=== PATIENT | male | born 1950 | race Caucasian/White ===

== ENCOUNTER 2017-07-21 10:31 | Inpatient (IN) | payer OTHER ==
[~2017-07-21] VITALS: Ht 188 cm; Wt 172.5 kg
[2017-07-21] MEDS ORDERED: ALBUTEROL/IPRATROPIUM 3 ML NEB NEB ONE ×2 (10:45→12:30)
[2017-07-21] MEDS ORDERED: DEXAMETHASONE SOD PHOS 10 MG/1 ML VIAL IV ONE (10:45)
[2017-07-21 11:12] LABS: BASOPHILS # (AUTO) 0.1 (0.0-0.1); BASOPHILS % 0.5 % (0.0-1.0); EOSINOPHILS # (AUTO) 0.2 (0.0-0.4); EOSINOPHILS % 1.5 % (0.0-6.0); HEMATOCRIT 46.1 % (38.2-49.6); HEMOGLOBIN 15.2 g/dL (14.0-18.0); LYMPHOCYTES # (AUTO) 1.4 (1.0-3.2); LYMPHOCYTES % 12.6 % (18.0-39.1); MEAN CORPUSCULAR HEMOGLOBIN 28.9 pg (28-32); MEAN CORPUSCULAR VOLUME 87.6 fL (81-99); MONOCYTES % 9.1 % (4.4-11.3); NEUTROPHILS # (AUTO) 8.3 (2.1-6.9); NEUTROPHILS % 75.8 % (38.7-80.0); PLATELET COUNT 184 x10e3/uL (140-360); RED BLOOD COUNT 5.26 x10e6/uL (4.3-5.7); RED CELL DISTRIBUTION WIDTH 14.8 % (11.7-14.4)
[2017-07-21 11:31] LABS: ALANINE AMINOTRANSFERASE 38 IU/L (0-55); ALBUMIN 3.6 g/dL (3.5-5.0); ALBUMIN/GLOBULIN RATIO 0.8 (0.8-2.0); ALKALINE PHOSPHATASE 101 IU/L (40-150); ANION GAP 12.7 mmol/L (8-16); BLOOD UREA NITROGEN 15 mg/dL (7-26); BUN/CREATININE RATIO 13 (6-25); CALCIUM 9.6 mg/dL (8.4-10.2); CARBON DIOXIDE 26 mmol/L (22-29); CHLORIDE 103 mmol/L (98-107); CREATININE, SERUM 1.15 mg/dL (0.72-1.25); EST GLOMERULAR FILTRATION RATE > 60 ML/MIN (60-); GLUCOSE 120 mg/dL (74-118); POTASSIUM 3.7 mmol/L (3.5-5.1); SODIUM 138 mmol/L (136-145)
[2017-07-21 11:59] LABS: ABG HCO3 26 mmol/L (23-28); ABG PCO2 38 mmHg (41-51); ABG PH 7.44 (7.31-7.41); ABG PO2 73 mmHg (80-105)
--- NOTE | 2017-07-21 12:16 | Diagnostic Imaging Report ---
PROCEDURE: X-RAY CHEST, TWO VIEWS COMPARISON: None. INDICATIONS: SHORTNESS OF BREATH, CONGESTION FINDINGS: Limited evaluation secondary to patient body habitus. The lungs are well-inflated. Patchy airspace opacities in the lung bases left greater than right likely reflect atelectasis. No pleural effusion or pneumothorax. Mild enlargement of the cardiac silhouette with prominence of the pulmonary interstitium. No acute osseous abnormalities. Multilevel degenerative disc changes of the thoracic spine. CONCLUSION: Mild cardiomegaly with interstitial pulmonary edema. Dictated by: Cuco Reyes M.D. on 07/21/2017 at 12:16 Electronically approved by: Cuco Reyes M.D. on 07/21/2017 at 12:16
[2017-07-21] MEDS ORDERED: LEVOFLOXACIN 750MG/D5W 150ML 150 ML IV ONE (12:30)
[2017-07-21] MEDS ORDERED: FUROSEMIDE INJ 10 MG/ML 4 ML VIAL IV ONE (12:30)
[2017-07-21] MEDS ORDERED: LEVOFLOXACIN 750MG/DEXTROSE PREMIX BAG 150ML IV SCH (12:45)
[2017-07-21] MEDS ORDERED: SODIUM CHLORIDE FLUSH 10 ML SYR INJ PRN (12:45)
[2017-07-21] MEDS ORDERED: ASPIRIN 81 MG CHEW TAB PO ONE (12:45)
[2017-07-21 13:11] LABS: CREATINE KINASE MB 8.9 ng/mL (0-5.0)
[2017-07-21] MEDS ORDERED: LEVOTHYROXINE125 MCG (13:52)
[2017-07-21] MEDS ORDERED: VENTOLIN HFA18 GM (13:52)
[2017-07-21] MEDS ORDERED: AMLODIPINE BESYL5 MG (13:52)
[2017-07-21] MEDS ORDERED: FUROSEMIDE INJ 10 MG/ML 4 ML VIAL ONE (14:24)
[2017-07-21] MEDS: ALBUTEROL/IPRATROPIUM 3 ML NEB NEB SCH ×3 (15:00→23:15)
[2017-07-21] MEDS: LEVOFLOXACIN 750MG/D5W 150ML 150 ML IV SCH (19:50)
[2017-07-21 21:37] LABS: CREATINE KINASE MB 7.7 ng/mL (0-5.0)
[2017-07-21 22:30] VITALS: BP 162/81
[2017-07-21 23:57] VITALS: BP 162/81
[2017-07-22] VITALS (7 sets, daily range): BP systolic 141–178; BP diastolic 74–89
[2017-07-22] MEDS: ALBUTEROL/IPRATROPIUM 3 ML NEB NEB SCH ×6 (03:01→23:00)
[2017-07-22 07:36] LABS: BASOPHILS % 0.1 % (0.0-1.0); HEMATOCRIT 46.9 % (38.2-49.6); HEMOGLOBIN 15.3 g/dL (14.0-18.0); LYMPHOCYTES # (AUTO) 1.4 (1.0-3.2); LYMPHOCYTES % 14.8 % (18.0-39.1); MEAN CORPUSCULAR HGB CONC 32.6 g/dL (31-35); MEAN CORPUSCULAR VOLUME 88.8 fL (81-99); MONOCYTES # (AUTO) 0.8 (0.2-0.8); MONOCYTES % 8.2 % (4.4-11.3); NEUTROPHILS # (AUTO) 7.1 (2.1-6.9); NEUTROPHILS % 76.3 % (38.7-80.0); PLATELET COUNT 193 x10e3/uL (140-360); RED BLOOD COUNT 5.28 x10e6/uL (4.3-5.7); RED CELL DISTRIBUTION WIDTH 14.6 % (11.7-14.4)
--- NOTE | 2017-07-22 07:56 | Consultation ---
DATE OF CONSULTATION: CARDIOLOGY CONSULTATION CHIEF COMPLAINT: The patient is a 66-year-old with cough and dyspnea. HISTORY OF PRESENT ILLNESS: The patient has a history of chronic bronchitis and tobacco use. 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 Since then, he has been having increased trouble breathing and a dry cough. The patient has had no chest pain, no nausea, no vomiting, no abdominal pain, no fevers. PAST MEDICAL HISTORY: Significant for: 1. Chronic bronchitis. 2. Hypertension. 3. Hypothyroidism. MEDICATIONS: The patient's home medications include albuterol inhaler, amlodipine, and Synthroid. SOCIAL HISTORY: The patient has been a smoker. The patient does not drink. FAMILY HISTORY: There is a known family history of hypertension. PHYSICAL EXAMINATION GENERAL: The patient is a well-developed, well-nourished male. VITAL SIGNS: Temperature 96.4, pulse 67, blood pressure 170/80. HEAD, EARS, EYES, NOSE AND THROAT: The patient's cranium is normocephalic and atraumatic. The extraocular muscles are intact. Sclerae are anicteric. Pupils are equal, round and reactive to light. There is no pallor or cyanosis of the oral mucosa. No erythema or edema of the throat. NECK: Supple. No jugular venous distention. No carotid bruit. CHEST: The patient had rhonchi bilaterally. CARDIAC: The patient had normal S1 and S2, with a short 2/6 systolic murmur. ABDOMEN: The patient had good bowel sounds. No tenderness. No masses. EXTREMITIES: No clubbing, no cyanosis, no edema. NEUROLOGIC: The patient is alert and oriented times 3. Cranial nerves II through XII are intact. Motor strength was +5/+5 in all limbs. The patient's EKG demonstrated normal sinus rhythm with some nonspecific ST and T wave changes. 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 The patient will need to be treated with albuterol aerosols and IV antibiotics and some steroids. An echocardiogram has been ordered to evaluate the left ventricular size and function. Job#: [id number] cc:DIANA CROWE MD
[2017-07-22 08:04] LABS: BLOOD UREA NITROGEN 25 mg/dL (7-26); BUN/CREATININE RATIO 22 (6-25); CALCIUM 9.3 mg/dL (8.4-10.2); CARBON DIOXIDE 27 mmol/L (22-29); CHLORIDE 103 mmol/L (98-107); CREATININE, SERUM 1.12 mg/dL (0.72-1.25); EST GLOMERULAR FILTRATION RATE > 60 ML/MIN (60-); GLUCOSE 146 mg/dL (74-118); SODIUM 142 mmol/L (136-145)
[2017-07-22] MEDS: AMLODIPINE BESYLATE 5 MG TAB PO SCH (08:41)
[2017-07-22] MEDS: NICOTINE 14 MG/EA PATCH TOP SCH (08:41)
--- NOTE | 2017-07-22 09:45 | History and Physical ---
PCP: Dr. Ricardo House OCEAN EXPORT AGENT: Dr. Segundo Pavon CHIEF COMPLAINT: Shortness of breath with acute exacerbation of COPD and bronchitis. HISTORY: A 66-year-old male has been ill for the past week with increasing shortness of breath and wheezing. The patient is a heavy smoker. He came in with acute bronchitis and difficulty breathing. The patient was receiving nebulizer treatment. He did a little bit better. The patient is otherwise stable at this time. PAST MEDICAL HISTORY: COPD, hypertension, hypothyroidism. PAST SURGICAL HISTORY: Noncontributory. SOCIAL HISTORY: The patient is a smoker. He does not drink alcohol. ALLERGIES: NO KNOWN ALLERGIES. HOME MEDICATIONS: List reviewed. REVIEW OF SYSTEMS: As mentioned. PHYSICAL EXAMINATION VITAL SIGNS: Temperature is 98, blood pressure 178/86, pulse rate 76, respirations 18. GENERAL: The patient is not in acute distress. He is awake. HEENT: Normocephalic, atraumatic and anicteric. NECK: Supple grossly. PULMONARY: Diminished breath sounds bilaterally with coarses and rhonchi. CARDIOVASCULAR: S1 and S2. Regular rate and rhythm. ABDOMEN: Morbidly obese. EXTREMITIES: No cyanosis or edema. NEUROLOGICAL: No focal deficit. LABORATORY: Otherwise unremarkable. IMPRESSION 1. Acute exacerbation of chronic obstructive pulmonary disease. 2. Acute bronchitis. 3. Rrkbx-[id number] diastolic dysfunction congestive heart failure. PLAN: IV Lasix. Nebulizer treatment and antibiotics. Continue with current management. Job#: [id number] MA
[2017-07-22] MEDS: LEVOTHYROXINE SODIUM 112 MCG TAB PO SCH (11:11)
[2017-07-22] MEDS: POTASSIUM CHLORIDE 20 MEQ TAB CR PO SCH (11:11)
[2017-07-22] MEDS: FUROSEMIDE INJ 10 MG/ML 4 ML VIAL IV SCH (11:11)
--- NOTE | 2017-07-22 12:28 | Diagnostic Imaging Report ---
PROCEDURE: CT CHEST WITHOUT CONTRAST CT scan of the chest WITHOUT intravenous contrast, using standard protocol. TECHNIQUE: The chest was scanned utilizing a multidetector helical scanner from the apex to the level of the adrenal glands. No IV contrast was administered per physician's request. Coronal and sagittal multiplanar reformations were obtained. COMPARISON: None. INDICATIONS: SHORTNESS OF BREATH FINDINGS: Lines/tubes: None. Lungs and Airways: Centrilobular emphysematous changes predominantly involving the right upper lung (for example series 3, image 28). Increased subpleural reticulation noted, predominantly in the upper lobes, bilaterally (series 3, image 35 and bilateral lower lobes (example series 3, image 70), consistent with fibrotic changes. Linear opacities in the medial aspect of the lower lobes bilaterally, with mild traction bronchiectasis. Bilateral lower lobe central bronchial wall thickening. Subpleural paraseptal cystic changes in the upper lobes (series 3, image 34 and lower lobes (series 3, image 61). No definite honeycombing Ill-defined ground glass opacities in bilateral upper lobes (for example series 3, image 38 and bilateral lower lobes (series 3, image 92), associated to the above-described linear opacities and traction bronchiectasis. No nodules, masses, or consolidation. Airways are clear, without endobronchial lesions. Pleura: No effusion, or pneumothorax. Heart and mediastinum: Thyroid is unremarkable. Heart size is borderline enlarged. Atherosclerotic calcification of the coronary arteries and thoracic aorta. Aorta is non-aneurysmal. The main pulmonary artery measures approximately 3.2 cm. Soft lymph nodes: Enlarged right lower paratracheal lymph node, which measures approximately 1.5 cm in short axis (series 2, image 45). Mildly enlarged and partly calcified para-aortic lymph node (series 2, image 41), which measures 1.1 cm in short axis. Enlarged subcarinal lymph node measuring 1.7 cm in short axis (series 2, image 61). No axillary adenopathy. Abdomen: Limited views of the upper abdomen show no abnormality within the visualized liver, spleen, pancreas, or left kidney. Cholelithiasis, without wall thickening, or pericholecystic fluid. The adrenal glands are unremarkable. Bones: No aggressive lytic lesions. Multilevel degenerative disc changes in the thoracic spine. IMPRESSION: 1. Findings in bilateral lungs, consistent with fibrotic changes/interstitial lung disease (NSIP is a likely consideration). No consolidation, effusion or pulmonary masses. 2. Centrilobular emphysematous changes predominantly in the right upper lung. 3. Mediastinal adenopathy, as described, likely reactive. 4. Cholelithiasis, without CT evidence of cholecystitis. Meño Silva M.D. Dictated by: Meño Silva M.D. on 07/22/2017 at 12:29 Electronically approved by: Meño Silva M.D. on 07/22/2017 at 12:29
[2017-07-22] MEDS ORDERED: SODIUM CHLORIDE 0.9% 250ML 250 ML ONE (14:04)
[2017-07-22] MEDS: LEVOFLOXACIN 750MG/D5W 150ML 150 ML IV SCH (14:11)
[2017-07-22] MEDS: BENZONATATE 100 MG CAP PO PRN (22:30)
[2017-07-23] VITALS (8 sets, daily range): BP systolic 125–174; BP diastolic 77–95
[2017-07-23] MEDS: BENZONATATE 100 MG CAP PO PRN (05:50)
[2017-07-23] MEDS: LEVOTHYROXINE SODIUM 112 MCG TAB PO SCH (06:04)
[2017-07-23] MEDS: ALBUTEROL/IPRATROPIUM 3 ML NEB NEB SCH ×5 (07:00→23:30)
[2017-07-23 07:31] LABS: ANION GAP 14.7 mmol/L (8-16); BLOOD UREA NITROGEN 30 mg/dL (7-26); BUN/CREATININE RATIO 26 (6-25); CALCIUM 9.4 mg/dL (8.4-10.2); CARBON DIOXIDE 25 mmol/L (22-29); CHLORIDE 104 mmol/L (98-107); CREATININE, SERUM 1.14 mg/dL (0.72-1.25); EST GLOMERULAR FILTRATION RATE > 60 ML/MIN (60-); GLUCOSE 110 mg/dL (74-118); POTASSIUM 3.7 mmol/L (3.5-5.1); SODIUM 140 mmol/L (136-145)
[2017-07-23] MEDS: NICOTINE 14 MG/EA PATCH TOP SCH (09:00)
[2017-07-23] MEDS: FUROSEMIDE INJ 10 MG/ML 4 ML VIAL IV SCH (09:28)
[2017-07-23] MEDS: POTASSIUM CHLORIDE 20 MEQ TAB CR PO SCH (09:28)
[2017-07-23] MEDS: AMLODIPINE BESYLATE 5 MG TAB PO SCH (09:28)
[2017-07-23] MEDS: LEVOFLOXACIN 750MG/D5W 150ML 150 ML IV SCH (13:58)
[2017-07-24] VITALS (7 sets, daily range): BP systolic 132–164; BP diastolic 68–95
[2017-07-24] MEDS: ALBUTEROL/IPRATROPIUM 3 ML NEB NEB SCH ×5 (03:20→17:40)
[2017-07-24] MEDS: LEVOTHYROXINE SODIUM 112 MCG TAB PO SCH (05:35)
[2017-07-24] MEDS: FUROSEMIDE INJ 10 MG/ML 4 ML VIAL IV SCH (08:05)
[2017-07-24] MEDS: POTASSIUM CHLORIDE 20 MEQ TAB CR PO SCH (08:05)
[2017-07-24] MEDS: AMLODIPINE BESYLATE 5 MG TAB PO SCH (08:06)
[2017-07-24] MEDS: NICOTINE 14 MG/EA PATCH TOP SCH (08:06)
[2017-07-24] MEDS: DOXYCYCLINE HYCLATE TABLET 100 MG TAB PO SCH ×2 (09:42→20:46)
[2017-07-24] MEDS: GUAIFENESIN 600 MG TAB PO SCH ×2 (09:42→16:49)
[2017-07-24] MEDS: METHYLPREDNISOLONE SOD SUCC 40 MG/ML VIAL IV SCH ×2 (09:42→16:49)
[2017-07-24] MEDS: LEVOFLOXACIN 750MG/D5W 150ML 150 ML IV SCH (13:32)
[2017-07-25] VITALS (7 sets, daily range): BP systolic 160–177; BP diastolic 81–98
[2017-07-25] MEDS: METHYLPREDNISOLONE SOD SUCC 40 MG/ML VIAL IV SCH ×3 (01:12→17:25)
[2017-07-25] MEDS: LEVOTHYROXINE SODIUM 112 MCG TAB PO SCH (05:41)
[2017-07-25] MEDS: ALBUTEROL/IPRATROPIUM 3 ML NEB NEB SCH ×5 (07:55→23:00)
[2017-07-25] MEDS: FUROSEMIDE INJ 10 MG/ML 4 ML VIAL IV SCH (09:36)
[2017-07-25] MEDS: NICOTINE 14 MG/EA PATCH TOP SCH (09:37)
[2017-07-25] MEDS: POTASSIUM CHLORIDE 20 MEQ TAB CR PO SCH (09:37)
[2017-07-25] MEDS: AMLODIPINE BESYLATE 5 MG TAB PO SCH (09:37)
[2017-07-25] MEDS: GUAIFENESIN 600 MG TAB PO SCH ×2 (09:37→17:25)
[2017-07-25] MEDS: DOXYCYCLINE HYCLATE TABLET 100 MG TAB PO SCH ×2 (09:37→21:00)
[2017-07-25] MEDS: LEVOFLOXACIN 750MG/D5W 150ML 150 ML IV SCH (13:54)
[2017-07-25] MEDS ORDERED: OLOPATADINE 5 ML BTL OP PRN (22:30)
[2017-07-25] MEDS ORDERED: HYDRALAZINE HCL 25 MG TAB PO PRN (23:00)
[2017-07-26] VITALS: BP 142/67
[2017-07-26] MEDS: AMLODIPINE BESYLATE 5 MG TAB PO SCH ×2 (00:35→09:22)
[2017-07-26] MEDS: METHYLPREDNISOLONE SOD SUCC 40 MG/ML VIAL IV SCH ×3 (00:36→16:56)
[2017-07-26] MEDS: ALBUTEROL/IPRATROPIUM 3 ML NEB NEB SCH ×6 (03:00→22:55)
[2017-07-26 04:00] VITALS: BP 165/89
[2017-07-26] MEDS: LEVOTHYROXINE SODIUM 112 MCG TAB PO SCH (07:30)
[2017-07-26 08:49] VITALS: BP 140/82
[2017-07-26] MEDS: LORATADINE 10 MG TAB PO SCH ×2 (09:22)
[2017-07-26] MEDS: GUAIFENESIN 600 MG TAB PO SCH ×2 (09:22→16:56)
[2017-07-26] MEDS: NICOTINE 14 MG/EA PATCH TOP SCH (09:22)
[2017-07-26] MEDS: POTASSIUM CHLORIDE 20 MEQ TAB CR PO SCH (09:22)
[2017-07-26] MEDS: FUROSEMIDE INJ 10 MG/ML 4 ML VIAL IV SCH (09:22)
[2017-07-26 11:43] VITALS: BP 156/86
[2017-07-26] MEDS: LEVOFLOXACIN 750MG/D5W 150ML 150 ML IV SCH (14:30)
[2017-07-26 16:57] VITALS: BP 154/91
[2017-07-26 20:00] VITALS: BP 159/67
[2017-07-27] VITALS: BP 157/70
[2017-07-27] MEDS: METHYLPREDNISOLONE SOD SUCC 40 MG/ML VIAL IV SCH ×3 (01:00→17:00)
[2017-07-27] MEDS: ALBUTEROL/IPRATROPIUM 3 ML NEB NEB SCH ×7 (02:48→23:08)
[2017-07-27 04:00] VITALS: BP 147/69
[2017-07-27] MEDS: LEVOTHYROXINE SODIUM 112 MCG TAB PO SCH (05:58)
[2017-07-27 07:51] VITALS: BP 157/81
[2017-07-27 08:25] LABS: BASOPHILS # (AUTO) 0.1 (0.0-0.1); BASOPHILS % 0.5 % (0.0-1.0); HEMOGLOBIN 16.8 g/dL (14.0-18.0); LYMPHOCYTES # (AUTO) 1.7 (1.0-3.2); LYMPHOCYTES % 12.3 % (18.0-39.1); MEAN CORPUSCULAR HGB CONC 32.9 g/dL (31-35); MEAN CORPUSCULAR VOLUME 87.9 fL (81-99); MONOCYTES # (AUTO) 0.7 (0.2-0.8); MONOCYTES % 5.3 % (4.4-11.3); NEUTROPHILS # (AUTO) 10.6 (2.1-6.9); NEUTROPHILS % 79.3 % (38.7-80.0); PLATELET COUNT 268 x10e3/uL (140-360); RED CELL DISTRIBUTION WIDTH 14.4 % (11.7-14.4)
[2017-07-27 08:54] LABS: ANION GAP 12.2 mmol/L (8-16); BLOOD UREA NITROGEN 30 mg/dL (7-26); BUN/CREATININE RATIO 27 (6-25); CALCIUM 9.6 mg/dL (8.4-10.2); CARBON DIOXIDE 27 mmol/L (22-29); CHLORIDE 101 mmol/L (98-107); CREATININE, SERUM 1.11 mg/dL (0.72-1.25); EST GLOMERULAR FILTRATION RATE > 60 ML/MIN (60-); GLUCOSE 164 mg/dL (74-118); POTASSIUM 4.2 mmol/L (3.5-5.1); SODIUM 136 mmol/L (136-145)
[2017-07-27] MEDS: LORATADINE 10 MG TAB PO SCH (09:38)
[2017-07-27] MEDS: AMLODIPINE BESYLATE 5 MG TAB PO SCH (09:39)
[2017-07-27] MEDS: NICOTINE 14 MG/EA PATCH TOP SCH (09:39)
[2017-07-27] MEDS: GUAIFENESIN 600 MG TAB PO SCH ×2 (09:39→17:00)
[2017-07-27] MEDS: POTASSIUM CHLORIDE 20 MEQ TAB CR PO SCH (09:39)
[2017-07-27] MEDS: FUROSEMIDE 40 MG TAB PO SCH (09:39)
[2017-07-27 13:00] VITALS: BP 164/90
[2017-07-27 14:40] LABS: LYMPHOCYTES % (MANUAL) 12 % (19-48); MONOCYTES % (MANUAL) 3 % (3.4-9.0); NEUTROPHILS % (MANUAL) 85 % (40-74); PLATELET ESTIMATE ADEQUATE; PLATELET MORPHOLOGY COMMENT NORMAL; RBC MORPHOLOGY COMMENT NORMAL
[2017-07-27] MEDS: LEVOFLOXACIN 750MG/D5W 150ML 150 ML IV SCH (14:57)
[2017-07-27 15:50] VITALS: BP 131/65
[2017-07-27 20:00] VITALS: BP 145/67
[2017-07-28] VITALS: BP 166/97
[2017-07-28] MEDS: METHYLPREDNISOLONE SOD SUCC 40 MG/ML VIAL IV SCH ×2 (00:21→09:00)
[2017-07-28] MEDS: ALBUTEROL/IPRATROPIUM 3 ML NEB NEB SCH ×2 (03:04→07:00)
[2017-07-28 04:00] VITALS: BP 159/97
[2017-07-28] MEDS: LEVOTHYROXINE SODIUM 112 MCG TAB PO SCH (05:54)
[2017-07-28 07:40] VITALS: BP 137/68
[2017-07-28] MEDS: NICOTINE 14 MG/EA PATCH TOP SCH (09:00)
[2017-07-28] MEDS: LORATADINE 10 MG TAB PO SCH (09:00)
[2017-07-28] MEDS: POTASSIUM CHLORIDE 20 MEQ TAB CR PO SCH (09:00)
[2017-07-28] MEDS: AMLODIPINE BESYLATE 5 MG TAB PO SCH (09:00)
[2017-07-28] MEDS: GUAIFENESIN 600 MG TAB PO SCH (09:00)
[2017-07-28] MEDS: FUROSEMIDE 40 MG TAB PO SCH (09:00)
--- NOTE | 2017-07-28 09:15 | Discharge Summary ---
PCP: Dr. Ricardo House FINAL DIAGNOSES 1. Acute exacerbation of chronic obstructive pulmonary disease. 2. Fibrotic changes and interstitial lung disease. 3. Baseline smoker. 4. Rsxst-tv-[id number] diastolic dysfunction congestive heart failure, much improved. SUMMARY: This is a 66-year-old male who came in with increasing shortness of breath. The patient had workup. He has a CT scan of the chest and multiple other vascular workup. The patient basically has some left lower extremity peripheral vascular disease, but he is a smoker. There is no acute ischemia. The patient was stable. The CT scan as mentioned above. He did have some fluid retention, but much improved with furosemide. The patient had been on antibiotics. He is doing better. The patient will go home today. Discharge medication list is given. Patient will resume his home medication. 1. He finished the Medrol Dosepak. 2. Patanol eyedrops for itching. 3. Claritin 10 mg daily. 4. DuoNeb q.6 h. p.r.n. 5. Tessalon Perle. 6. Lasix. 7. Potassium was given as well. Patient is stable. Resume his home medications of Symbicort and albuterol. The patient will follow up with Dr. Ricardo House. The patient may need pulmonary function test at a later date. Discussed with the patient at length regarding stopping smoking. He expressed understanding. 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 The patient is stable at this time. Discharged home today. Job#: [id number] [place]
== END 2017-07-28 09:30 | disposition home or self-care (01) | DRG 190 ==
LOC: ER 10:31 → ERHOLD 13:24 → MED/SURG3 21:14
PROVIDERS: ADMIT Internal Medicine; ATTEND Internal Medicine
DX: J44.1 Chronic obstructive pulmonary disease with (acute) exacerbation (principal); I50.33 Acute on chronic diastolic (congestive) heart failure; J44.0 Chronic obstructive pulmonary disease with (acute) lower respiratory infection; J20.9 Acute bronchitis, unspecified; E03.9 Hypothyroidism, unspecified; I11.0 Hypertensive heart disease with heart failure; F17.210 Nicotine dependence, cigarettes, uncomplicated; R09.02 Hypoxemia; I70.202 Unspecified atherosclerosis of native arteries of extremities, left leg; J84.10 Pulmonary fibrosis, unspecified
CPT/HCPCS: 36415; 36600; 71046; 71250; 80048; 80053; 82550; 82553; 82805; 83880; 84484; 85025; 87040; 93005; 93306; 93880; 93925; 94640; 97139; 99284; J1100; J1940; J2920; J7050

== ENCOUNTER 2017-08-23 01:16 | Inpatient (IN) | payer OTHER ==
[~2017-08-23] VITALS: Ht 188 cm; Wt 147.0 kg
[~2017-08-23 01:16] MED LIST: AMLODIPINE BESYL5 MG; LEVOTHYROXINE125 MCG; VENTOLIN HFA18 GM
[2017-08-23] MEDS ORDERED: ALBUTEROL SULF 0.083% NEB SOLN 3 ML NEB NEB STA (01:17)
[2017-08-23] MEDS ORDERED: METHYLPREDNISOLONE SOD SUCC 125 MG/2ML VIAL IV ONE (01:30)
[2017-08-23] MEDS ORDERED: IPRATROPIUM BROMIDE 0.02% 2.5 ML NEB NEB ONE (01:30)
[2017-08-23 01:45] LABS: BASOPHILS # (AUTO) 0.1 (0.0-0.1); BASOPHILS % 0.9 % (0.0-1.0); EOSINOPHILS # (AUTO) 0.4 (0.0-0.4); EOSINOPHILS % 6.3 % (0.0-6.0); HEMATOCRIT 45.2 % (38.2-49.6); LYMPHOCYTES # (AUTO) 1.8 (1.0-3.2); LYMPHOCYTES % 25.6 % (18.0-39.1); MEAN CORPUSCULAR HEMOGLOBIN 28.9 pg (28-32); MEAN CORPUSCULAR HGB CONC 33.2 g/dL (31-35); MEAN CORPUSCULAR VOLUME 87.1 fL (81-99); MONOCYTES # (AUTO) 0.5 (0.2-0.8); MONOCYTES % 7.7 % (4.4-11.3); NEUTROPHILS # (AUTO) 4.2 (2.1-6.9); NEUTROPHILS % 59.2 % (38.7-80.0); PLATELET COUNT 208 x10e3/uL (140-360); RED BLOOD COUNT 5.19 x10e6/uL (4.3-5.7); RED CELL DISTRIBUTION WIDTH 15.4 % (11.7-14.4)
[2017-08-23 01:47] LABS: ALANINE AMINOTRANSFERASE 27 IU/L (0-55); ALBUMIN 3.9 g/dL (3.5-5.0); ALBUMIN/GLOBULIN RATIO 1.1 (0.8-2.0); ALKALINE PHOSPHATASE 89 IU/L (40-150); ANION GAP 15.2 mmol/L (8-16); BLOOD UREA NITROGEN 15 mg/dL (7-26); BUN/CREATININE RATIO 13 (6-25); CALCIUM 9.4 mg/dL (8.4-10.2); CARBON DIOXIDE 24 mmol/L (22-29); CHLORIDE 107 mmol/L (98-107); CREATINE KINASE 608 IU/L (30-200); CREATININE, SERUM 1.15 mg/dL (0.72-1.25); EST GLOMERULAR FILTRATION RATE > 60 ML/MIN (60-); GLUCOSE 105 mg/dL (74-118); POTASSIUM 4.2 mmol/L (3.5-5.1); SODIUM 142 mmol/L (136-145)
--- NOTE | 2017-08-23 01:49 | Diagnostic Imaging Report ---
EXAMINATION: CHEST SINGLE (PORTABLE) INDICATION: Shortness of breath COMPARISON: None FINDINGS: TUBES and LINES: None. LUNGS: Lungs are not well inflated. There are bibasilar atelectasis. There is mild prominence of the central pulmonary vasculature, consistent with pulmonary venous congestion. PLEURA: No pleural effusion or pneumothorax. HEART AND MEDIASTINUM: The cardiomediastinal silhouette is unremarkable. BONES AND SOFT TISSUES: No acute osseous lesion. Soft tissues are unremarkable. UPPER ABDOMEN: No free air under the diaphragm. IMPRESSION: No acute thoracic abnormality. Signed by: Dr. Rishabh Perry M.D. on 08/23/2017 1:46 AM
[2017-08-23] MEDS ORDERED: SODIUM CHLORIDE FLUSH 10 ML SYR INJ PRN (02:45)
[2017-08-23] MEDS: ALBUTEROL/IPRATROPIUM 3 ML NEB NEB SCH ×5 (03:00→23:00)
[2017-08-23] MEDS: METHYLPREDNISOLONE SOD SUCC 40 MG/ML VIAL IV SCH ×3 (04:37→18:24)
[2017-08-23] MEDS: CEFTRIAXONE SOD 1 GM VIAL IV SCH (05:30)
[2017-08-23] MEDS: AZITHROMYCIN 250 MG TAB PO SCH (05:42)
[2017-08-23 13:10] LABS: CREATINE KINASE 483 IU/L (30-200)
[2017-08-23 14:54] VITALS: BP 156/85
[2017-08-23 15:05] VITALS: BP 156/85
[2017-08-23 15:29] VITALS: BP 156/85
[2017-08-23] MEDS: NICOTINE 14 MG/EA PATCH TOP SCH (18:24)
[2017-08-23] MEDS: NEOMYCIN/POLYMYX/BACITR OINT 0.9 GM PKT TOP SCH (18:33)
[2017-08-23 18:56] VITALS: BP 164/100
[2017-08-23 21:00] VITALS: BP 151/89
[2017-08-23 21:05] VITALS: BP 151/89
[2017-08-23] MEDS: GUAIFENESIN 200 MG/10 ML UDC PO PRN (21:55)
[2017-08-24] VITALS (8 sets, daily range): BP systolic 136–156; BP diastolic 68–96
[2017-08-24] MEDS: METHYLPREDNISOLONE SOD SUCC 40 MG/ML VIAL IV SCH ×4 (00:08→22:00)
[2017-08-24] MEDS: CEFTRIAXONE SOD 1 GM VIAL IV SCH (05:41)
[2017-08-24] MEDS: AZITHROMYCIN 250 MG TAB PO SCH (05:42)
[2017-08-24] MEDS: ALBUTEROL/IPRATROPIUM 3 ML NEB NEB SCH ×5 (07:00→22:45)
[2017-08-24 07:12] LABS: BASOPHILS % 0.1 % (0.0-1.0); HEMATOCRIT 48.4 % (38.2-49.6); HEMOGLOBIN 15.4 g/dL (14.0-18.0); LYMPHOCYTES % 6.4 % (18.0-39.1); MEAN CORPUSCULAR HEMOGLOBIN 28.7 pg (28-32); MEAN CORPUSCULAR HGB CONC 31.8 g/dL (31-35); MEAN CORPUSCULAR VOLUME 90.3 fL (81-99); MONOCYTES # (AUTO) 0.5 (0.2-0.8); PLATELET COUNT 190 x10e3/uL (140-360); RED BLOOD COUNT 5.36 x10e6/uL (4.3-5.7); RED CELL DISTRIBUTION WIDTH 15.3 % (11.7-14.4)
[2017-08-24 07:36] LABS: ANION GAP 18.3 mmol/L (8-16); BLOOD UREA NITROGEN 20 mg/dL (7-26); BUN/CREATININE RATIO 20 (6-25); CALCIUM 9.8 mg/dL (8.4-10.2); CARBON DIOXIDE 22 mmol/L (22-29); CHLORIDE 105 mmol/L (98-107); CREATINE KINASE 447 IU/L (30-200); CREATININE, SERUM 1.02 mg/dL (0.72-1.25); EST GLOMERULAR FILTRATION RATE > 60 ML/MIN (60-); GLUCOSE 236 mg/dL (74-118); POTASSIUM 4.3 mmol/L (3.5-5.1); SODIUM 141 mmol/L (136-145)
[2017-08-24] MEDS ORDERED: NEOMYCIN/POLYMYX/BACITR OINT 0.9 GM PKT TOP SCH (09:00)
[2017-08-24] MEDS: NEOMYCIN/POLYMYX/BACITR OINT 0.9 GM PKT TOP SCH (09:05)
[2017-08-24] MEDS ORDERED: DEXTROSE 50% SYRINGE 50 ML IV PRN (10:30)
[2017-08-24] MEDS: INSULIN LISPRO 100 UNIT/1 ML 3ML VIAL SQ SCH ×3 (11:29→20:44)
[2017-08-24] MEDS: GUAIFENESIN 600 MG TAB PO SCH ×2 (11:33→17:11)
--- NOTE | 2017-08-24 13:20 | History and Physical ---
CHIEF COMPLAINT: Wheezing, shortness of breath and hypoxic. HISTORY OF PRESENT ILLNESS: Patient is a 66-year-old male with emphysema. Came in with acute exacerbation of COPD. The patient having wheezing and cough. Patient was hypoxic. He also has a nonproductive cough as well. The patient is otherwise stable at this time. PAST MEDICAL HISTORY: Emphysema. Obesity. Obstructive sleep apnea. Hypothyroidism. Hypertension. HOME MEDICATIONS: List is reviewed. ALLERGIES: NO KNOWN ALLERGIES. PAST SURGICAL HISTORY: Noncontributory. SOCIAL HISTORY: Patient is a smoker. He does not use alcohol. No recreational drugs. REVIEW OF SYSTEMS: As mentioned. PHYSICAL EXAMINATION: GENERAL: The patient is not in acute distress, although he is short of breath and wheezing. VITAL SIGNS: Temperature is 98. Blood pressure 145/80. Pulse rate 64. Respirations 18. HEENT: Normocephalic, atraumatic, anicteric. NECK: Supple grossly. PULMONARY: Bilateral coarseness and rhonchi, and diminished breath sounds. CARDIOVASCULAR: Regular rate and rhythm. ABDOMEN: Soft and obese. EXTREMITIES: No gross cyanosis or edema. NEUROLOGIC: No gross focal deficits. LABORATORY: Sodium is 141, potassium 4.3, chloride 105. Bicarb 22, BUN 20. Creatinine 1.0. Glucose 236. WBC 16. Hemoglobin 15. Hematocrit 48. Platelets 190,000. IMPRESSION: 1. Steroid-induced leukocytosis. On admission his WBC was 7.0. 2. Acute exacerbation of chronic obstructive pulmonary disease with hypoxia, acute bronchitis, severe emphysema due to smoking. 3. Smoker. 4. Obesity with obstructive sleep apnea, not recently had any sleep study on CPAP at home. PLAN: Consult Dr. 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 Steroids, nebulizer treatment, antibiotics. Education. Smoking cessation. Job#: [id number]
[2017-08-24 13:45] LABS: CREATINE KINASE MB 19.8 ng/mL (0-5.0)
[2017-08-24] MEDS: NICOTINE 14 MG/EA PATCH TOP SCH (17:11)
--- NOTE | 2017-08-24 17:46 | Consultation ---
DATE OF CONSULTATION: PULMONARY/CRITICAL CARE CONSULTATION REFERRING PHYSICIAN: Dr. Tong Smith. CHIEF COMPLAINT: Worsening dyspnea and cough. HISTORY OF PRESENT ILLNESS: The patient is a 66-year-old man. He has a long history of COPD. He uses Symbicort at home twice a day along with a rescue inhaler. He also had a CT scan about a year ago that showed some interstitial changes at the bases suggestive of mild nonspecific interstitial pneumonitis. He had a sleep study many years ago that was positive but never received CPAP. He was hospitalized at [facility] in June with difficulty breathing. He was given Solu-Medrol and antibiotics with improvement. Cardiology also saw the patient in consultation and felt he might have some component of diastolic heart failure. He now complains of worsening dyspnea and congestion. He has a persistent cough productive of small amounts of phlegm. He does not complain of chest pain or fevers. PAST MEDICAL HISTORY 1. History of COPD as noted above. 2. Prior history of nonspecific interstitial pneumonitis at the lung bases seen on CT scan in June 2017. 3. Possible diastolic heart failure. 4. Hypertension. 5. Hypothyroidism. PAST SURGICAL HISTORY: Noncontributory. 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 He is a prior smoker, but he quit about 4 days ago. He does not drink alcohol. ALLERGIES: THERE ARE NO KNOWN DRUG ALLERGIES. REVIEW OF SYSTEMS: The patient is afebrile. He does not report any fever. There is no headache. He has no neck pain. He is not having any sore throat. He does note some dyspnea and cough. He is not having any chest pain. He denies any nausea or vomiting. He is not complaining of any leg edema. He denies any focal neurological complaints. PHYSICAL EXAMINATION VITAL SIGNS: The patient is afebrile. Vital signs are stable. He is on 4 liters of oxygen. HEENT: Examination shows no facial swelling or erythema. Nasal mucosa is normal. The oropharynx is normal. LYMPHATIC: No submandibular, cervical or supraclavicular adenopathy. CARDIAC: Regular rate and rhythm with normal S1 and S2. There are no murmurs or rubs. CHEST: Auscultation of lungs reveals rhonchorous breath sounds bilaterally. There is no wheezing. ABDOMEN: Soft and nontender. There is no rebound or guarding. EXTREMITIES: No leg edema or calf tenderness. There is no cyanosis or clubbing. SKIN: No rashes. LABORATORY DATA: The white blood cell count is 15.5, and the other blood counts are normal. The BNP is normal. Cardiac enzymes are normal. IMPRESSION 1. [id number] respiratory failure. 2. Chronic obstructive pulmonary disease. 3. Nonspecific interstitial pneumonitis. 4. Sleep apnea. PLAN 1. Solu-Medrol IV at 1 mg/kg twice daily. 2. Aggressive bronchodilator therapy. 3. Continue current antibiotics. 4. Emphasize smoking cessation. 5. Patient will need a home oxygen evaluation prior to discharge. 6. Pulmonary function testing as an outpatient. 7. Arrange for sleep study as an outpatient. Job#: [id number]
[2017-08-24] MEDS ORDERED: BUDESONIDE/FORMOTEROL 160/4.5MCG INHALER INH SCH (19:00)
--- NOTE | 2017-08-24 19:11 | Discharge Summary ---
DICTATION DISCONTINUED (00:07) Job#: [id number] CQ
[2017-08-25] VITALS (8 sets, daily range): BP systolic 125–162; BP diastolic 77–91
[2017-08-25] MEDS: ALBUTEROL/IPRATROPIUM 3 ML NEB NEB SCH ×6 (01:45→23:20)
[2017-08-25] MEDS: METHYLPREDNISOLONE SOD SUCC 40 MG/ML VIAL IV SCH ×3 (05:59→22:11)
[2017-08-25] MEDS: AZITHROMYCIN 250 MG TAB PO SCH (05:59)
[2017-08-25] MEDS: CEFTRIAXONE SOD 1 GM VIAL IV SCH (05:59)
[2017-08-25] MEDS: BUDESONIDE/FORMOTEROL 160/4.5MCG INHALER INH SCH ×2 (07:00→19:50)
[2017-08-25] MEDS: INSULIN LISPRO 100 UNIT/1 ML 3ML VIAL SQ SCH ×4 (07:30→20:56)
[2017-08-25] MEDS: GUAIFENESIN 600 MG TAB PO SCH ×2 (09:05→17:31)
[2017-08-25] MEDS: NEOMYCIN/POLYMYX/BACITR OINT 0.9 GM PKT TOP SCH (09:05)
[2017-08-25] MEDS: NICOTINE 14 MG/EA PATCH TOP SCH (17:43)
[2017-08-25] MEDS: ACETAMINOPHEN 325 MG TAB PO PRN (17:44)
[2017-08-26] VITALS (9 sets, daily range): BP systolic 128–185; BP diastolic 69–110
[2017-08-26] MEDS: ALBUTEROL/IPRATROPIUM 3 ML NEB NEB SCH ×6 (03:01→23:40)
[2017-08-26] MEDS: CEFTRIAXONE SOD 1 GM VIAL IV SCH (04:09)
[2017-08-26] MEDS: GUAIFENESIN 200 MG/10 ML UDC PO PRN (04:09)
[2017-08-26] MEDS: AZITHROMYCIN 250 MG TAB PO SCH (05:11)
[2017-08-26] MEDS: METHYLPREDNISOLONE SOD SUCC 40 MG/ML VIAL IV SCH ×3 (05:11→21:36)
[2017-08-26] MEDS: BUDESONIDE/FORMOTEROL 160/4.5MCG INHALER INH SCH ×2 (05:41→20:21)
[2017-08-26 06:15] LABS: BASOPHILS % 0.2 % (0.0-1.0); HEMATOCRIT 46.7 % (38.2-49.6); LYMPHOCYTES # (AUTO) 1.2 (1.0-3.2); LYMPHOCYTES % 9.4 % (18.0-39.1); MEAN CORPUSCULAR HEMOGLOBIN 28.7 pg (28-32); MEAN CORPUSCULAR HGB CONC 32.1 g/dL (31-35); MEAN CORPUSCULAR VOLUME 89.3 fL (81-99); MONOCYTES # (AUTO) 0.4 (0.2-0.8); MONOCYTES % 3.2 % (4.4-11.3); NEUTROPHILS # (AUTO) 10.7 (2.1-6.9); NEUTROPHILS % 86.4 % (38.7-80.0); PLATELET COUNT 201 x10e3/uL (140-360); RED BLOOD COUNT 5.23 x10e6/uL (4.3-5.7); RED CELL DISTRIBUTION WIDTH 15.1 % (11.7-14.4)
[2017-08-26 06:36] LABS: ANION GAP 13.1 mmol/L (8-16); BLOOD UREA NITROGEN 25 mg/dL (7-26); BUN/CREATININE RATIO 25 (6-25); CALCIUM 9.8 mg/dL (8.4-10.2); CARBON DIOXIDE 28 mmol/L (22-29); CHLORIDE 102 mmol/L (98-107); CREATININE, SERUM 1.02 mg/dL (0.72-1.25); EST GLOMERULAR FILTRATION RATE > 60 ML/MIN (60-); GLUCOSE 209 mg/dL (74-118); POTASSIUM 4.1 mmol/L (3.5-5.1); SODIUM 139 mmol/L (136-145)
[2017-08-26] MEDS: INSULIN LISPRO 100 UNIT/1 ML 3ML VIAL SQ SCH ×4 (07:30→20:21)
[2017-08-26] MEDS ORDERED: ARTIFICIAL TEARS (OPTH) 15 ML BTL OS PRN (09:45)
[2017-08-26] MEDS: NEOMYCIN/POLYMYX/BACITR OINT 0.9 GM PKT TOP SCH (10:01)
[2017-08-26] MEDS: ACETAMINOPHEN 325 MG TAB PO PRN ×2 (11:09→20:20)
[2017-08-26] MEDS: OLOPATADINE 5 ML BTL OP SCH ×2 (12:00→21:00)
[2017-08-26] MEDS ORDERED: CLONIDINE HCL 0.1 MG TAB PO PRN (14:00)
[2017-08-26] MEDS: NICOTINE 14 MG/EA PATCH TOP SCH (18:37)
[2017-08-26] MEDS: ALPRAZOLAM 0.25 MG TAB PO PRN (21:35)
[2017-08-27] VITALS (15 sets, daily range): BP systolic 137–210; BP diastolic 75–160
[2017-08-27] MEDS ORDERED: HYDROCODONE/APAP 10MG-325MG TAB ONE (00:33)
[2017-08-27] MEDS ORDERED: HYDROCODONE/APAP 10MG-325MG TAB PO PRN (00:45)
[2017-08-27] MEDS: ALBUTEROL/IPRATROPIUM 3 ML NEB NEB SCH ×4 (03:27→15:00)
[2017-08-27] MEDS: ALPRAZOLAM 0.25 MG TAB PO PRN ×2 (04:25→11:48)
[2017-08-27] MEDS ORDERED: VALSARTAN 80 MG TAB ONE (05:28)
[2017-08-27] MEDS ORDERED: VALSARTAN 80 MG TAB PO SCH (05:30)
[2017-08-27] MEDS: METHYLPREDNISOLONE SOD SUCC 40 MG/ML VIAL IV SCH (05:41)
[2017-08-27] MEDS: CEFTRIAXONE SOD 1 GM VIAL IV SCH (05:41)
[2017-08-27] MEDS: AZITHROMYCIN 250 MG TAB PO SCH (05:41)
[2017-08-27] MEDS: BUDESONIDE/FORMOTEROL 160/4.5MCG INHALER INH SCH ×2 (05:50→19:16)
[2017-08-27] MEDS: HYDROCODONE/APAP 10MG-325MG TAB PO PRN ×2 (07:30→16:16)
[2017-08-27] MEDS: INSULIN LISPRO 100 UNIT/1 ML 3ML VIAL SQ SCH ×4 (07:30→21:00)
[2017-08-27] MEDS: PILOCARPINE HCL(OPTH) 15 ML LIQD OP SCH ×17 (08:35→22:25)
[2017-08-27] MEDS: OLOPATADINE 5 ML BTL OP SCH (08:38)
[2017-08-27] MEDS: NEOMYCIN/POLYMYX/BACITR OINT 0.9 GM PKT TOP SCH (08:38)
[2017-08-27] MEDS: BRIMONIDINE/TIMOLOL (OPTH SOLN 5 ML DRPETTE OP SCH ×2 (08:38→21:28)
[2017-08-27] MEDS ORDERED: ACETAZOLAMIDE 250 MG TAB PO SCH (09:00)
[2017-08-27] MEDS ORDERED: NIFEDIPINE CR 30 MG TAB PO SCH (09:00)
[2017-08-27] MEDS: HYDRALAZINE HCL 25 MG TAB PO PRN ×2 (11:48→16:17)
[2017-08-27] MEDS: PREDNISOLONE ACETATE 1% OPTH SUSP 5 ML BTL OP SCH ×3 (14:08→21:28)
[2017-08-27] MEDS: ACETAZOLAMIDE 250 MG TAB PO SCH ×2 (14:09→17:57)
[2017-08-27] MEDS ORDERED: PILOCARPINE HCL(OPTH) 15 ML LIQD OP SCH (17:00)
[2017-08-27] MEDS: NICOTINE 14 MG/EA PATCH TOP SCH (17:57)
[2017-08-27] MEDS ORDERED: NIFEDIPINE CR 30 MG TAB ONE (18:04)
[2017-08-27] MEDS: NIFEDIPINE CR 30 MG TAB PO SCH (18:15)
[2017-08-27] MEDS ORDERED: BRINZOLAMIDE 1% OPTH SUSP 10 ML BTL OP SCH (19:00)
[2017-08-27] MEDS: BRINZOLAMIDE 1% OPTH SUSP 10 ML BTL OP SCH ×2 (19:50→21:28)
[2017-08-28] VITALS (7 sets, daily range): BP systolic 116–135; BP diastolic 67–86
[2017-08-28] MEDS: PILOCARPINE HCL(OPTH) 15 ML LIQD OP SCH ×11 (01:17→21:36)
[2017-08-28] MEDS: ACETAZOLAMIDE 250 MG TAB PO SCH ×4 (01:18→18:08)
[2017-08-28] MEDS: GUAIFENESIN 200 MG/10 ML UDC PO PRN (04:03)
[2017-08-28] MEDS: ALPRAZOLAM 0.25 MG TAB PO PRN (04:03)
[2017-08-28] MEDS: CEFTRIAXONE SOD 1 GM VIAL IV SCH (05:16)
[2017-08-28] MEDS: AZITHROMYCIN 250 MG TAB PO SCH (06:53)
[2017-08-28 07:09] LABS: BASOPHILS # (AUTO) 0.1 (0.0-0.1); BASOPHILS % 0.4 % (0.0-1.0); EOSINOPHILS # (AUTO) 0.1 (0.0-0.4); EOSINOPHILS % 0.4 % (0.0-6.0); LYMPHOCYTES % 19.5 % (18.0-39.1); MEAN CORPUSCULAR HEMOGLOBIN 28.8 pg (28-32); MEAN CORPUSCULAR HGB CONC 32.7 g/dL (31-35); MEAN CORPUSCULAR VOLUME 88.1 fL (81-99); MONOCYTES % 6.3 % (4.4-11.3); NEUTROPHILS # (AUTO) 10.8 (2.1-6.9); NEUTROPHILS % 71.5 % (38.7-80.0); PLATELET COUNT 268 x10e3/uL (140-360); RED BLOOD COUNT 6.24 x10e6/uL (4.3-5.7); RED CELL DISTRIBUTION WIDTH 15.5 % (11.7-14.4)
[2017-08-28] MEDS: INSULIN LISPRO 100 UNIT/1 ML 3ML VIAL SQ SCH ×4 (07:30→20:52)
[2017-08-28 07:36] LABS: ALANINE AMINOTRANSFERASE 54 IU/L (0-55); ALBUMIN 3.8 g/dL (3.5-5.0); ALBUMIN/GLOBULIN RATIO 0.9 (0.8-2.0); ALKALINE PHOSPHATASE 77 IU/L (40-150); BLOOD UREA NITROGEN 31 mg/dL (7-26); BUN/CREATININE RATIO 26 (6-25); CALCIUM 9.5 mg/dL (8.4-10.2); CARBON DIOXIDE 25 mmol/L (22-29); CHLORIDE 97 mmol/L (98-107); CREATINE KINASE 181 IU/L (30-200); EST GLOMERULAR FILTRATION RATE > 60 ML/MIN (60-); GLUCOSE 85 mg/dL (74-118); SODIUM 131 mmol/L (136-145)
[2017-08-28] MEDS: BRINZOLAMIDE 1% OPTH SUSP 10 ML BTL OP SCH ×3 (08:31→21:36)
[2017-08-28] MEDS: BRIMONIDINE/TIMOLOL (OPTH SOLN 5 ML DRPETTE OP SCH ×2 (08:36→21:36)
[2017-08-28] MEDS: PREDNISOLONE ACETATE 1% OPTH SUSP 5 ML BTL OP SCH ×4 (08:43→21:36)
[2017-08-28] MEDS: PREDNISONE 10 MG TAB PO SCH (09:04)
[2017-08-28] MEDS: NIFEDIPINE CR 30 MG TAB PO SCH ×2 (09:05→17:15)
[2017-08-28] MEDS: FAMOTIDINE 20 MG TAB PO SCH ×2 (11:05→21:36)
[2017-08-28] MEDS: BUDESONIDE/FORMOTEROL 160/4.5MCG INHALER INH SCH ×2 (11:22→20:05)
[2017-08-28] MEDS: NICOTINE 14 MG/EA PATCH TOP SCH (18:08)
[2017-08-29] VITALS (8 sets, daily range): BP systolic 86–115; BP diastolic 51–77
[2017-08-29] MEDS: ACETAZOLAMIDE 250 MG TAB PO SCH ×4 (00:27→17:18)
[2017-08-29] MEDS: CEFTRIAXONE SOD 1 GM VIAL IV SCH (04:54)
[2017-08-29 05:44] LABS: BASOPHILS # (AUTO) 0.1 (0.0-0.1); BASOPHILS % 0.6 % (0.0-1.0); EOSINOPHILS # (AUTO) 0.1 (0.0-0.4); EOSINOPHILS % 0.5 % (0.0-6.0); HEMATOCRIT 54.1 % (38.2-49.6); HEMOGLOBIN 18.1 g/dL (14.0-18.0); LYMPHOCYTES # (AUTO) 3.3 (1.0-3.2); LYMPHOCYTES % 27.8 % (18.0-39.1); MEAN CORPUSCULAR HEMOGLOBIN 28.7 pg (28-32); MEAN CORPUSCULAR HGB CONC 33.5 g/dL (31-35); MEAN CORPUSCULAR VOLUME 85.9 fL (81-99); MONOCYTES % 8.6 % (4.4-11.3); NEUTROPHILS # (AUTO) 7.1 (2.1-6.9); NEUTROPHILS % 60.3 % (38.7-80.0); PLATELET COUNT 215 x10e3/uL (140-360)
[2017-08-29 06:07] LABS: ALBUMIN 3.4 g/dL (3.5-5.0); ALBUMIN/GLOBULIN RATIO 0.9 (0.8-2.0); ANION GAP 12.7 mmol/L (8-16); CALCIUM 9.2 mg/dL (8.4-10.2); CREATININE, SERUM 1.28 mg/dL (0.72-1.25); POTASSIUM 3.7 mmol/L (3.5-5.1)
[2017-08-29] MEDS: INSULIN LISPRO 100 UNIT/1 ML 3ML VIAL SQ SCH ×4 (07:16→21:00)
[2017-08-29] MEDS: BRINZOLAMIDE 1% OPTH SUSP 10 ML BTL OP SCH ×3 (08:10→21:56)
[2017-08-29] MEDS: PREDNISOLONE ACETATE 1% OPTH SUSP 5 ML BTL OP SCH ×4 (08:19→21:55)
[2017-08-29] MEDS: PILOCARPINE HCL(OPTH) 15 ML LIQD OP SCH ×6 (08:20→21:57)
[2017-08-29] MEDS: NIFEDIPINE CR 30 MG TAB PO SCH (08:20)
[2017-08-29] MEDS: BRIMONIDINE/TIMOLOL (OPTH SOLN 5 ML DRPETTE OP SCH ×2 (08:20→21:56)
[2017-08-29] MEDS: FAMOTIDINE 20 MG TAB PO SCH ×2 (08:31→22:51)
[2017-08-29] MEDS: PREDNISONE 10 MG TAB PO SCH (08:31)
[2017-08-29] MEDS: BUDESONIDE/FORMOTEROL 160/4.5MCG INHALER INH SCH ×2 (11:20→19:35)
[2017-08-29] MEDS: NICOTINE 14 MG/EA PATCH TOP SCH (17:18)
[2017-08-30] VITALS (7 sets, daily range): BP systolic 93–135; BP diastolic 60–88
[2017-08-30] MEDS: ACETAZOLAMIDE 250 MG TAB PO SCH ×4 (00:24→18:43)
[2017-08-30] MEDS: CEFTRIAXONE SOD 1 GM VIAL IV SCH (06:02)
[2017-08-30 06:11] LABS: BASOPHILS # (AUTO) 0.1 (0.0-0.1); BASOPHILS % 0.7 % (0.0-1.0); EOSINOPHILS # (AUTO) 0.2 (0.0-0.4); EOSINOPHILS % 1.5 % (0.0-6.0); HEMATOCRIT 53.1 % (38.2-49.6); HEMOGLOBIN 18.1 g/dL (14.0-18.0); LYMPHOCYTES # (AUTO) 2.9 (1.0-3.2); LYMPHOCYTES % 24.6 % (18.0-39.1); MEAN CORPUSCULAR HEMOGLOBIN 29.4 pg (28-32); MEAN CORPUSCULAR HGB CONC 34.1 g/dL (31-35); MEAN CORPUSCULAR VOLUME 86.2 fL (81-99); MONOCYTES # (AUTO) 0.9 (0.2-0.8); MONOCYTES % 7.5 % (4.4-11.3); NEUTROPHILS # (AUTO) 7.6 (2.1-6.9); NEUTROPHILS % 63.4 % (38.7-80.0); PLATELET COUNT 201 x10e3/uL (140-360); RED BLOOD COUNT 6.16 x10e6/uL (4.3-5.7); RED CELL DISTRIBUTION WIDTH 15.5 % (11.7-14.4)
[2017-08-30 06:39] LABS: ALBUMIN 3.4 g/dL (3.5-5.0); ANION GAP 10.5 mmol/L (8-16); CALCIUM 8.8 mg/dL (8.4-10.2); CREATININE, SERUM 1.23 mg/dL (0.72-1.25); POTASSIUM 3.5 mmol/L (3.5-5.1)
[2017-08-30] MEDS: INSULIN LISPRO 100 UNIT/1 ML 3ML VIAL SQ SCH ×4 (07:30→21:00)
[2017-08-30 08:00] LABS: BAND NEUTROPHILS % (MANUAL) 2 %; LYMPHOCYTES % (MANUAL) 19 % (19-48); MONOCYTES % (MANUAL) 4 % (3.4-9.0); NEUTROPHILS % (MANUAL) 75 % (40-74); PLATELET ESTIMATE ADEQUATE; PLATELET MORPHOLOGY COMMENT NORMAL; RBC MORPHOLOGY COMMENT NORMAL
[2017-08-30] MEDS: BUDESONIDE/FORMOTEROL 160/4.5MCG INHALER INH SCH ×2 (08:00→19:20)
[2017-08-30] MEDS: PREDNISOLONE ACETATE 1% OPTH SUSP 5 ML BTL OP SCH ×5 (09:00→21:00)
[2017-08-30] MEDS: PILOCARPINE HCL(OPTH) 15 ML LIQD OP SCH ×8 (09:00→21:00)
[2017-08-30] MEDS: BRINZOLAMIDE 1% OPTH SUSP 10 ML BTL OP SCH ×3 (11:46→21:00)
[2017-08-30] MEDS: PREDNISONE 10 MG TAB PO SCH (11:47)
[2017-08-30] MEDS: FAMOTIDINE 20 MG TAB PO SCH ×2 (11:47→21:00)
[2017-08-30] MEDS: BRIMONIDINE/TIMOLOL (OPTH SOLN 5 ML DRPETTE OP SCH ×2 (11:52→21:00)
[2017-08-30] MEDS ORDERED: HYDROCODONE/APAP 10MG-325MG TAB PO PRN (12:00)
[2017-08-30] MEDS: NICOTINE 14 MG/EA PATCH TOP SCH (18:43)
[2017-08-31] VITALS (7 sets, daily range): BP systolic 102–147; BP diastolic 57–99
[2017-08-31] MEDS: CEFTRIAXONE SOD 1 GM VIAL IV SCH (05:00)
[2017-08-31] MEDS: ACETAZOLAMIDE 250 MG TAB PO SCH ×4 (05:11→17:37)
[2017-08-31] MEDS: BUDESONIDE/FORMOTEROL 160/4.5MCG INHALER INH SCH ×2 (07:25→19:40)
[2017-08-31] MEDS: INSULIN LISPRO 100 UNIT/1 ML 3ML VIAL SQ SCH ×4 (07:30→21:00)
[2017-08-31] MEDS: BRINZOLAMIDE 1% OPTH SUSP 10 ML BTL OP SCH ×3 (09:33→21:00)
[2017-08-31] MEDS: PILOCARPINE HCL(OPTH) 15 ML LIQD OP SCH ×6 (09:33→21:08)
[2017-08-31] MEDS: BRIMONIDINE/TIMOLOL (OPTH SOLN 5 ML DRPETTE OP SCH ×2 (09:33→21:05)
[2017-08-31] MEDS: PREDNISOLONE ACETATE 1% OPTH SUSP 5 ML BTL OP SCH ×4 (09:33→21:10)
[2017-08-31] MEDS: FAMOTIDINE 20 MG TAB PO SCH ×2 (09:34→21:18)
[2017-08-31] MEDS: PREDNISONE 10 MG TAB PO SCH (09:34)
[2017-08-31] MEDS: NICOTINE 14 MG/EA PATCH TOP SCH (17:19)
[2017-09-01] VITALS: BP 116/57
[2017-09-01] MEDS: ACETAZOLAMIDE 250 MG TAB PO SCH ×2 (00:25→05:31)
[2017-09-01 04:00] VITALS: BP 114/64
[2017-09-01] MEDS: CEFTRIAXONE SOD 1 GM VIAL IV SCH (05:20)
[2017-09-01] MEDS: INSULIN LISPRO 100 UNIT/1 ML 3ML VIAL SQ SCH (07:30)
[2017-09-01] MEDS: BUDESONIDE/FORMOTEROL 160/4.5MCG INHALER INH SCH (07:30)
[2017-09-01 08:19] VITALS: BP 128/74
[2017-09-01] MEDS: PREDNISONE 10 MG TAB PO SCH (09:10)
[2017-09-01] MEDS: FAMOTIDINE 20 MG TAB PO SCH (09:10)
[2017-09-01] MEDS: PILOCARPINE HCL(OPTH) 15 ML LIQD OP SCH ×2 (09:10)
[2017-09-01 09:18] VITALS: BP 128/74
[2017-09-01] MEDS: BRINZOLAMIDE 1% OPTH SUSP 10 ML BTL OP SCH (09:20)
[2017-09-01] MEDS: PREDNISOLONE ACETATE 1% OPTH SUSP 5 ML BTL OP SCH (09:28)
[2017-09-01] MEDS: BRIMONIDINE/TIMOLOL (OPTH SOLN 5 ML DRPETTE OP SCH (09:40)
[2017-09-01] MEDS ORDERED: PREDNISONE10 MG PO (09:59)
[2017-09-01] MEDS ORDERED: PREDNISONE5 MG PO (10:00)
[2017-09-01] MEDS ORDERED: NICOTINE PATCH1 EAC5 TOP (10:00)
[2017-09-01] MEDS ORDERED: SYMBICORT 16010.2 GM INH (10:01)
[2017-09-01] MEDS ORDERED: VENTOLIN HFA18 GM INH (10:02)
[2017-09-01] MEDS ORDERED: BETIMOL5 M1 OD (10:03)
[2017-09-01] MEDS ORDERED: AZOPT10 ML OS (10:04)
[2017-09-01] MEDS ORDERED: ISOPTO CARPINE15 ML OP (10:05)
[2017-09-01] MEDS ORDERED: TYLENOL WITH C1 EACH PO (10:06)
[2017-09-01] MEDS ORDERED: PROMETHAZINE HC25 M1 PO (10:06)
--- NOTE | 2017-09-01 14:00 | Discharge Summary ---
PCP: CONSULTANTS: Dr. Kt Wade and Dr. Mango Chavarria FINAL DIAGNOSES 1. Acute exacerbation of chronic obstructive pulmonary disease. . Patient is a heavy smoker. 2. Left eye acute angle glaucoma. SUMMARY: This 66-year-old male came in with a cough. The patient is a heavy smoker. He did not quit. As a matter of fact, he smoked even after his last visit. He did not follow up with a mop maker. The patient is stable after treatment of his acute exacerbation of COPD, but then he had acute exacerbation of his new diagnosis of acute angle glaucoma of the left eye. Dr. Chavarria was consulted. The patient is now stabilized. He is going to be discharged home. He is on multiple medications. Please review the medications on discharge. The patient needs to follow up with Dr. Mango Chavarria next week. He needs to follow up with Dr. Kt Wade as well for medications as well as to schedule a sleep study for his obstructive sleep apnea. The patient is morbidly obese with a BMI of 42. The patient is otherwise stable at this time. Advised strongly to stop smoking and continue his compliance with treatment and all recommendations. Job#: [id number]
== END 2017-09-01 10:40 | disposition home or self-care (01) | DRG 190 ==
LOC: ER 01:16 → ERHOLD 02:43 → IMCU 13:56 → MED/SURG 08-31 14:55
PROVIDERS: ADMIT Internal Medicine; ATTEND Internal Medicine
DX: J44.1 Chronic obstructive pulmonary disease with (acute) exacerbation (principal); J96.21 Acute and chronic respiratory failure with hypoxia; J18.9 Pneumonia, unspecified organism; Z68.42 Body mass index [BMI] 45.0-49.9, adult; I50.30 Unspecified diastolic (congestive) heart failure; J20.9 Acute bronchitis, unspecified; E66.01 Morbid (severe) obesity due to excess calories; G47.33 Obstructive sleep apnea (adult) (pediatric); J84.89 Other specified interstitial pulmonary diseases; E03.9 Hypothyroidism, unspecified; Z87.891 Personal history of nicotine dependence; J44.0 Chronic obstructive pulmonary disease with (acute) lower respiratory infection; Z91.19 Patient's noncompliance with other medical treatment and regimen; H40.20X0 Unspecified primary angle-closure glaucoma, stage unspecified; I11.0 Hypertensive heart disease with heart failure
CPT/HCPCS: 36415; 71045; 80048; 80053; 82550; 82553; 82948; 83036; 83880; 84443; 84484; 85025; 93005; 94640; 94660; 99284; J0696; J2920; J2930

== ENCOUNTER → 2018-01-14 | Outpatient (CLI) | payer OTHER ==
[~2018-01-14] MED LIST changes: +AZOPT10 ML OS; +BETIMOL5 M1 OD; +IOPAMIDOL 370 MG/ML 200 ML INFUS..BTL INJ ONE; +ISOPTO CARPINE15 ML OP; +NICOTINE PATCH1 EAC5 TOP; +PREDNISONE10 MG PO; +PREDNISONE5 MG PO; +PROMETHAZINE HC25 M1 PO; +SODIUM CHLORIDE 0.9% 100 ML 100 ML ONE; +SYMBICORT 16010.2 GM INH; +TYLENOL WITH C1 EACH PO; +VENTOLIN HFA18 GM INH
[2018-01-14 12:44] LABS: BLOOD UREA NITROGEN 14 mg/dL (7-26); BUN/CREATININE RATIO 13 (6-25); EST GLOMERULAR FILTRATION RATE > 60 ML/MIN (60-)
--- NOTE | 2018-01-14 14:36 | Diagnostic Imaging Report ---
EXAMINATION: CT angiography of the abdomen and pelvis and lower extremities with contrast. TECHNIQUE: Spiral CT images of the abdomen and pelvis and lower extremities were performed from the lung bases to the feet after the intravenous administration of 100 cc of Isovue-370. Coronal and sagittal reformatted images were obtained. For optimization of anatomic detail, volume rendered 3-D reconstructions were obtained on a stand-alone workstation under direct supervision of the interpreting physician. COMPARISON: None. CLINICAL HISTORY:Claudication DISCUSSION: Vasculature: The abdominal aorta is nonaneurysmal. There are atherosclerotic calcifications of the abdominal aorta and major visceral branches without significant stenosis. Iliac inflow: The bilateral common, internal, and external iliac arteries are patent with mild calcified and noncalcified atherosclerotic plaque. No significant stenosis. Femoral-popliteal segments: Right: The common femoral artery is widely patent. The femoral bifurcation is patent. Short segment moderate stenosis of the proximal right superficial femoral artery (series 3 image 134). Profunda femoris artery and proximal muscular branches are widely patent. Superficial femoral artery is otherwise patent without significant stenosis. Short segment moderate stenosis of the above knee popliteal artery at the level of the intercondylar notch of the femur (series 3 image 239). Additional short segment moderate stenosis at the level of the tibial plateaus (series 3 image 247). Left: The common femoral artery is widely patent. The femoral bifurcation is patent. The profunda femoris artery and proximal muscular branches are widely patent. Short segment moderate stenosis of the proximal SFA as seen on series 3 image 145. The distal SFA is patent with mild disease. Chronic dissection flap of the above knee popliteal artery at the level of the intercondylar notch of the femur without flow limitation (series 3 image 235). Otherwise no significant popliteal arterial stenosis. Runoff: Right: The anterior tibial artery is patent though occludes at the level of the mid calf. The tibioperoneal trunk is patent. The peroneal artery is patent to its expected termination above the ankle joint. The posterior tibial artery is patent to its continuation as the lateral plantar artery though is diffusely diseased. Left: The anterior tibial artery is patent proximally and occludes at the level of the distal calf. The tibioperoneal trunk is patent. The peroneal artery is patent to its expected termination above the ankle joint. The posterior tibial artery is patent though diffusely diseased and is visualized to its continuation as the lateral plantar artery. ABDOMEN/PELVIS: LOWER THORAX:Linear and reticular opacity compatible with subsegmental atelectasis in the dependent lower lobes. HEPATOBILIARY: No focal hepatic lesions. No intra-or extrahepatic biliary ductal dilation. Multiple calculi within the dependent portion of the gallbladder. No wall thickening or pericholecystic inflammation. SPLEEN: Calcified granulomata. No splenomegaly. PANCREAS: No focal masses or ductal dilatation. ADRENALS: Fullness of the adrenal glands without discrete nodule. KIDNEYS/URETERS: No hydronephrosis. No calculi. No gross mass lesion. PELVIC ORGANS/BLADDER: Urinary bladder is unremarkable. Prostate and seminal vesicles appear normal. PERITONEUM/RETROPERITONEUM: No free air or fluid. LYMPH NODES: No intra-abdominal, retroperitoneal, pelvic or inguinal lymphadenopathy. VESSELS: As above. Portal vein, splenic vein, and central superior mesenteric vein are patent. GI TRACT: The large bowel shows no evidence of distention or wall thickening. The appendix or is normal. No small bowel dilatation to suggest obstruction. BONES AND SOFT TISSUE: No bony destructive lesions. 9 cm lesion of mixed fat and soft tissue attenuation within the subcutaneous fat along the right sacral ala. Calcified injection granulomata subcutaneous fat of the right gluteal region. IMPRESSION: Diffuse calcified and noncalcified atherosclerotic vascular disease with findings as follows: No abdominal aortic aneurysm or significant visceral branch stenosis. No significant iliac inflow stenosis. Short segment moderate stenoses of the bilateral proximal superficial femoral arteries. Tandem short segment moderate stenoses of the right popliteal artery. Short segment chronic nonflow limiting dissection of the left popliteal artery. Bilateral 2 vessel, posterior tibial artery dominant runoff to the feet. The anterior tibial arteries occlude at the level of the mid calves. Nonvascular findings include a lesion of mixed soft tissue and fat attenuation in the paramedian and subcutaneous tissues at the level of the right sacral ala. Patient reports history of mass on his lower back. It is unclear whether this represents fat necrosis related to prior surgery, or fat-containing neoplasm. If the patient has not previously undergone surgery or other imaging for this finding, pelvic MRI with and without contrast is suggested for further evaluation. Cholelithiasis without findings of acute cholecystitis. Signed by: Dr. Cuco Reyes M.D. on 01/14/2018 2:31 PM
== END ==
LOC: CT 11:30
DX: I70.213 Atherosclerosis of native arteries of extremities with intermittent claudication, bilateral legs (principal)
CPT/HCPCS: 36415; 75635; 82565; 84520; Q9967